=== PATIENT | male | born 1990 | race Caucasian/White ===

== ENCOUNTER 2017-08-06 07:49 | Emergency (ER) | payer OTHER ==
[~2017-08-06] VITALS: Ht 180.3 cm; Wt 93.0 kg
[2017-08-06 07:50] VITALS: BP 139/96; PULSE 70; RESP 16; TEMP 98.6; O2SAT 99
[2017-08-06] MEDS ORDERED: DICL75TA PO (08:08)
[2017-08-06] MEDS ORDERED: BACL10TA PO (08:08)
--- NOTE | 2017-08-06 08:11 | PD ---
HPI Chief Complaint: Back/ Neck Pain or Injury Time Seen by Provider: 08:07 Travel History International Travel<30 days: No Contact w/Intl Traveler<30days: No Traveled to known affect area: No History of Present Illness HPI This is a 27-year-old male who presents for evaluation of lower back pain. Symptoms started 3-4 weeks ago. He describes it as a sharp pain in his right lower back/buttocks region which radiates down the posterior right thigh with associated paresthesias in the right foot. Symptoms are constant, worse with movement/heavy lifting. He does not recall any specific mechanism of injury. Denies any bowel or bladder incontinence, saddle anesthesia, abdominal pain, weakness. He has been seeing a chiropractor and receiving treatment through them but symptoms persisted which prompted evaluation today. He has not tried using any medications for symptom relief. He has no other complaints at this time. [facility] Social History Alcohol Use: No Tobacco Use: No Allergies-Medications (Allergen,Severity, Reaction): Coded Allergies: No Known Allergies (Unverified , 08/06/17) Reported Meds & Prescriptions Reported Meds & Active Scripts Active Baclofen 10 Mg Tab 10 Mg PO TID [address] (Diclofenac Sodium) 75 Mg Tabdr 75 Mg PO BID 10 Days Review of Systems Except as stated in HPI: all other systems reviewed are Neg Physical Exam Narrative GENERAL: Well-developed well-nourished male in no acute distress SKIN: Warm and dry. HEAD: Atraumatic. Normocephalic. EYES: Pupils equal and round. No scleral icterus. No injection or drainage. ENT: No nasal bleeding or discharge. Mucous membranes pink and moist. NECK: Trachea midline. No JVD. CARDIOVASCULAR: Regular rate and rhythm. No murmur appreciated. RESPIRATORY: No accessory muscle use. Clear to auscultation. Breath sounds equal bilaterally. GASTROINTESTINAL: Abdomen soft, non-tender, nondistended. Hepatic and splenic margins not palpable. MUSCULOSKELETAL: No obvious deformities. No clubbing. No cyanosis. No edema. No reproducible tenderness to palpation along the lumbar spine, leg. There is no lower extremity edema. 2+ dorsalis pedis and posterior tibial pulses bilaterally. 5 out of 5 muscle strength in lower extremities. Positive straight leg raise on the right. NEUROLOGICAL: Awake and alert. No obvious cranial nerve deficits. Motor grossly within normal limits. Normal speech. Data Data Last Documented VS Vital Signs Date Time Temp Pulse Resp B/P (MAP) Pulse Ox O2 Delivery O2 Flow Rate FiO2 08/06/17 07:50 98.6 70 16 139/96 (110) 99 Room Air Orders Orders Dexamethasone Inj (Decadron Inj) (08/06/17 08:15) Orphenadrine Inj (Norflex Inj) (08/06/17 08:15) Ketorolac Inj (Toradol Inj) (08/06/17 08:15) Ed Discharge Order (08/06/17 08:07) [facility] Medical Decision Making Medical Screen Exam Complete: Yes Emergency Medical Condition: Yes Medical Record Reviewed: Yes Differential Diagnosis Herniated nucleus pulposus, piriformis syndrome, muscle spasm, malignancy, DVT Narrative Course His examination and history are consistent with lumbosacral radiculopathy. The patient will be given Toradol, Norflex, Decadron injections here, discharged with diclofenac and baclofen. Recommended outpatient follow-up with primary care physician if symptoms persist. Diagnosis Primary Impression: Lumbosacral radiculopathy Additional Instructions: Medication as prescribed. Take diclofenac with meals. Do not drive or drink alcohol when taking baclofen. Avoid activities that exacerbate the pain. Follow-up with primary care physician in 2 weeks. Return for any emergent medical conditions. Med/Other Pt SpecificInfo: Prescription(s) given Scripts Baclofen (Baclofen) 10 Mg Tab 10 MG PO TID for Muscle Spasm for 10 Days, TAB 0 Refills Prov: Hector Varghese MD 08/06/[address] (Diclofenac Sodium DR) 75 Mg Tabdr 75 MG PO BID for 10 Days, #20 TAB 0 Refills Prov: Hector Varghese MD 08/06/17 Disposition: 01 DISCHARGE HOME Condition: Stable Arnoldo Avalos Aug 06, 2017 08:11
[2017-08-06] MEDS ORDERED: ORPHENADRINE INJ 60 MG/2 ML AMP IM ONE (08:15)
[2017-08-06] MEDS ORDERED: DEXAMETHASONE SOD PHOS 4 MG/ML VIAL IM ONE (08:15)
[2017-08-06] MEDS ORDERED: KETOROLAC TROMETHAMINE 60 MG/2 ML (IM) VIAL IM ONE (08:15)
== END 2017-08-06 08:58 | disposition home or self-care (01) ==
LOC: NEPK 07:49
DX: M54.17 Radiculopathy, lumbosacral region (principal)
CPT/HCPCS: 96372; 99284; J1100; J1885; J2360

== ENCOUNTER 2017-08-24 13:56 | Emergency (ER) | payer OTHER ==
[~2017-08-24 13:56] MED LIST: BACL10TA PO; DICL75TA PO
[2017-08-24 14:02] VITALS: BP 144/73; PULSE 85; RESP 16; TEMP 98.1; O2SAT 100
[2017-08-24] MEDS ORDERED: DEXAMETHASONE SOD PHOS 20 MG/5 ML VIAL IM ONE (14:15)
[2017-08-24] MEDS ORDERED: KETOROLAC TROMETHAMINE 60 MG/2 ML (IM) VIAL IM ONE (14:15)
--- NOTE | 2017-08-24 14:15 | PD ---
HPI Chief Complaint: Back/ Neck Pain or Injury Time Seen by Provider: 14:08 Travel History International Travel<30 days: No Contact w/Intl Traveler<30days: No Traveled to known affect area: No History of Present Illness HPI 27-year-old male presents to the emergency department via EMS with sudden onset of severe right low back pain with radiation in the right lower leg. Patient states he has had trouble with this intermittently over the past 2 weeks. Patient did see a chiropractor briefly without improvement. He states she has been trying to stretch, do excellent exercises and using TENS unit at home with some improvement over the past couple of days, however this morning he was using his TENS unit when his pain got suddenly worse and he was unable to get up off the ground. Patient denies numbness, tingling, or obvious weakness. He states his inability to stand was due to his pain. He states his pain is improved since arriving via EMS. Pain currently is 7 out of 10 and worse with certain movements. Patient denies specific injury to this area. He has no known drug allergies per [facility] Past Medical History Medical History: Denies Significant Hx Past Surgical History Surgical History: No Previous Surgery Social History Alcohol Use: No Tobacco Use: No Substance Use: No Allergies-Medications (Allergen,Severity, Reaction): Coded Allergies: No Known Allergies (Unverified , 08/06/17) Reported Meds & Prescriptions Reported Meds & Active Scripts Active Baclofen 10 Mg Tab 10 Mg PO TID [address] (Diclofenac Sodium) 75 Mg Tabdr 75 Mg PO BID 10 Days Review of Systems Except as stated in HPI: all other systems reviewed are Neg General / Constitutional: No: Fever Eyes: No: Visual changes HENT: No: Headaches Cardiovascular: No: Chest Pain or Discomfort Respiratory: No: Shortness of Breath Gastrointestinal: No: Abdominal Pain Genitourinary: No: Dysuria Musculoskeletal: Positive: Myalgias, Arthralgias, Limited ROM, Pain (See history of present illness) Skin: No Rash Neurologic: No: Weakness Psychiatric: No: Depression Endocrine: No: Polydipsia Hematologic/Lymphatic: No: Easy Bruising Physical Exam Narrative GENERAL: Patient appears in mild to moderate distress. SKIN: Warm and dry. Normal color. Normal turgor. No rash. HEAD: Atraumatic. Normocephalic. EYES: Pupils equal and round. No scleral icterus. No injection or drainage. ENT: No nasal bleeding or discharge. Mucous membranes pink and moist. Pharynx is clear. Airway is patent NECK: Trachea midline. Supple and nontender CARDIOVASCULAR: Regular rate and rhythm. RESPIRATORY: No accessory muscle use. Clear to auscultation. Breath sounds equal bilaterally. GASTROINTESTINAL: Abdomen soft, non-tender, nondistended. Hepatic and splenic margins not palpable. MUSCULOSKELETAL: Extremities without clubbing, cyanosis, or edema. No obvious deformities. Patient has tenderness with palpation of the right lower lumbar spine into the sciatic notch. Patient has positive straight leg raise pain on the right at 35. He does not have contralateral straight leg raise pain on the left. Strength is intact with both dorsi and plantar flexion in both lower extremities. Patient seems somewhat hyperreflexive to both of the patellar tendons, and somewhat decreased in both Achilles tendon reflexes. No significant numbness is noted. NEUROLOGICAL: Awake and alert. No obvious cranial nerve deficits. Motor grossly within normal limits. Five out of 5 muscle strength in the arms and legs. Normal speech. PSYCHIATRIC: Appropriate mood and affect; insight and judgment normal. Data Data Last Documented VS Vital Signs Date Time Temp Pulse Resp B/P (MAP) Pulse Ox O2 Delivery O2 Flow Rate FiO2 08/24/17 14:02 98.1 85 16 144/73 (96) 100 Orders Orders Spine, Lumbar Comp W/Obliq (08/24/17 14:08) Dexamethasone Inj (Decadron Inj) (08/24/17 14:15) Ketorolac Inj (Toradol Inj) (08/24/17 14:15) Orphenadrine Inj (Norflex Inj) (08/24/17 15:15) MDM Medical Decision Making Medical Screen Exam Complete: Yes Emergency Medical Condition: Yes Medical Record Reviewed: Yes Differential Diagnosis Lumbago. Sciatica. Spinal stenosis. Piriformis syndrome. Narrative Course Patient is a mild to moderate distress but medically stable. X-rays of the lower lumbar spine are ordered. Patient was given 10 mg Decadron IM as well as 60 mg Toradol IM. X-rays are unremarkable. Patient is reassessed and found to be not much improved, and complaining of ongoing spasm in the right lower back and piriformis regions. Patient is given Norflex 60 mg IM. Range of motion and stretching exercises are reviewed with the patient. Patient is sent home on 800 mg ibuprofen 3 times daily 10 days with food Patient given Flexeril 10 mg 3 times daily as needed muscle spasm #15 for Patient is to use heat, ice, and stretches as discussed. Patient to follow-up with his primary care physician or return emergency department as needed as discussed. Diagnosis Primary Impression: Piriformis syndrome of right side Referrals: Primary Care Physician Patient Instructions: General Instructions, Muscle Spasm (ED), Piriformis Syndrome (ED), Piriformis Syndrome Exercises (GEN) Departure Forms: School Release Return to School Date: Aug 26, 2017 Additional Instructions: Patient was given 10 mg Decadron IM as well as 60 mg Toradol IM. X-rays are unremarkable. Patient is reassessed and found to be not much improved, and complaining of ongoing spasm in the right lower back and piriformis regions. Patient is given Norflex 60 mg IM. Range of motion and stretching exercises are reviewed with the patient. Patient is sent home on 800 mg ibuprofen 3 times daily 10 days with food Patient given Flexeril 10 mg 3 times daily as needed muscle spasm #15 for Patient is to use heat, ice, and stretches as discussed. Patient to follow-up with his primary care physician or return emergency department as needed as discussed. Med/Other Pt SpecificInfo: Prescription(s) given Scripts Cyclobenzaprine (Flexeril) 10 Mg Tab 10 MG PO TID for Muscle Spasm, #15 TAB 0 Refills Prov: Elizabeth Aguilar MD 08/24/17 Ibuprofen (Ibuprofen) 800 Mg Tab 800 MG PO Q8H Y for Pain/Inflammation, #30 TAB 0 Refills Prov: Elizabeth Aguilar MD 08/24/17 Disposition: 01 DISCHARGE HOME Condition: Stable Benoit Yu Aug 24, 2017 14:15
[2017-08-24] MEDS ORDERED: ORPHENADRINE INJ 60 MG/2 ML AMP IM ONE (15:15)
[2017-08-24] MEDS ORDERED: IBUP1TAB7 PO (15:15)
[2017-08-24] MEDS ORDERED: CYCL10TA PO (15:15)
--- NOTE | 2017-08-24 15:24 | RADRPT ---
EXAM DATE/TIME: 08/24/2017 14:28 [facility] COMPARISON: No previous studies available for comparison. INDICATIONS : Low back pain that radiates down the right leg. No known injury. MEDICAL HISTORY : None. SURGICAL HISTORY : None. ENCOUNTER: Initial ACUITY: 1 month PAIN SCORE: 5/10 LOCATION: Right lower back FINDINGS: There are five non-rib bearing vertebral bodies. The vertebral bodies are in normal alignment withou t evidence of subluxation. There is a minimal scoliosis. The disc spaces are maintained. The posteri or elements are intact without evidence of spondylolysis. The pedicles are intact. Bony mineralizat ion is normal. No fracture is identified. CONCLUSION: Minimal scoliosis with no underlying bony abnormality. Bassam Christian MD on August 24, 2017 at 15:21 Board Certified Radiologist. This report was verified electronically.
== END 2017-08-24 16:33 | disposition home or self-care (01) ==
LOC: NEPD 13:56
DX: G57.01 Lesion of sciatic nerve, right lower limb (principal); M62.830 Muscle spasm of back; X58.XXXA Exposure to other specified factors, initial encounter; Y92.009 Unspecified place in unspecified non-institutional (private) residence as the place of occurrence of the external cause; Z79.899 Other long term (current) drug therapy
CPT/HCPCS: 72110; 96372; 99284; J1100; J1885; J2360